=== PATIENT | male | born 1950 | race Two or more races ===

== ENCOUNTER 2017-12-28 15:17 | Emergency (ER) | payer OTHER ==
[2017-12-28] MEDS ORDERED: Sodium Chloride 0.9% 10 ML Syringe FLUSH PRN (16:04)
[2017-12-28] MEDS ORDERED: Sodium Chloride 0.9% 1,000 ML IV ONE (16:05)
[2017-12-28] MEDS ORDERED: Albuterol/Ipratropium 3.0-0.5 MG/3 ML Neb Soln NEB ONE (16:05)
[2017-12-28] MEDS ORDERED: Ondansetron 4 MG Tab.DIS PO ONE (16:07)
[2017-12-28] MEDS ORDERED: fentaNYL 100 MCG/2 ML SDV IVPUSH ONE (16:07)
[2017-12-28 16:55] LABS: CHLORIDE,CL 100 mmol/L (101-111); SODIUM,NA 135 mmol/L (135-145)
[2017-12-28] MEDS ORDERED: Iopamidol 612 MG/ML 75 ML Bottle IVPUSH ONE (16:57)
--- NOTE | 2017-12-28 17:50 | CT ---
Clinical history: 67-year-old newly jaundice male with distended abdomen who has had pain for the pas t 8 days (WBC 19,500). Scan technique: Volume acquisition of data abdomen and pelvis obtained without oral contrast but duri ng intravenous ministration 75 cc nonionic Isovue contrast via injector while patient was lying supin e on the Siemens multi slice scanner [place], [place]. All data archiv ed in the PACS system for storage, reformatting axial/sagittal/coronal planes and study. Interpretation: 1. Calcifications and extensive atheromatous plaque with thrombus and normal caliber abdominal aorta. No aneurysm or dissection. 2. *Gallbladder distended right upper quadrant with pericystic fluid suggesting inflammation. No gall stones or abnormal dilatation of the intra/extrahepatic biliary ducts but suggestion of biliary duct air. Cholangitis? Liver normal size/configuration. No hepatic mass. 3. Normal stomach, spleen, atrophic pancreas and adrenal glands. Normal reniform size axis and config uration. No renal cortical mass lesion, perinephric abscess, nephrolithiasis or signs of obstructive uropathy (no pyelocaliectasis or ureterectasis). 4. Calcifications midline prostate gland. Symmetrically distended nonopacified urinary bladder unrema rkable. 5. No pelvic or abdominal mass lesion, pelvic/mesenteric/retroperitoneal lymphadenopathy, inflammator y "dirty" peritoneal fat, signs of mechanical bowel obstruction, ascites or free intraperitoneal air. 6. Anterolisthesis L5 vertebral body and chronic severe degenerative disc disease L5-S1 level (associ ated destructive arthritis). 7. Normal cardiac silhouette. Lung bases clear. CONCLUSION: Diseased gallbladder and liver. Abnormal aorta and lower lumbar spine.
[2017-12-28] MEDS ORDERED: Piperacillin/Tazobactam 4.5 GM in Sodium Chloride 0.9% 50 ML IV ONE (17:51)
--- NOTE | 2017-12-28 18:18 | EDM.PDOC ---
Scribed by Whitney Day 12/28/17 [id number] for Misbah Aquino MD ED HPI GENERAL MEDICAL PROBLEM - General Chief Complaint: Abdominal Pain Stated Complaint: [id number] FARHATRIA 7 DAYS AB PAIN CANT WALK Time Seen by Provider: 12/28/17 15:34 Source of Information: Reports: Patient, RN, RN Notes Reviewed History Limitations: Reports: No Limitations - History of Present Illness INITIAL COMMENTS - FREE TEXT/NARRATIVE: Patient presents to ER by private vehicle with complaint of diarrhea and abdominal pain x7 days, but much worse in the past 24 hours. Patient states that in the past 24 hours his abdomen has become distended and hard. Reports having fairly frequent liquid stools in small amounts. Admits to nausea but denies any vomiting. Denies fever but admits to chills. Onset: Gradual Duration: Getting Worse Location: Reports: Abdomen Quality: Reports: Ache Severity: Severe Improves with: Reports: None Worsens with: Reports: None Associated Symptoms: Reports: No Other Symptoms Abdominal Pain Score (Numeric/FACES): 9 - Related Data Allergies Allergy/AdvReac Type Severity Reaction Status Date / Time No Known Allergies Allergy Verified 12/28/17 15:36 Home Meds: Home Meds Albuterol Sulfate [Albuterol Sulfate HFA] 2 puff INH Q4H PRN 01/05/15 [History] Aspirin [Halfprin] 1 tab PO DAILY 01/05/15 [History] Atenolol 50 mg PO DAILY 01/05/15 [History] Fluticasone/Salmeterol [Advair 500-50] 1 puff INH BID 01/05/15 [History] Hydrocodone/Acetaminophen [Hydrocodon-Acetaminophn 10-325] 1 tab PO TID PRN [History] Ipratropium [Atrovent] 1 vial INH Q6HR PRN 01/05/15 [History] Levothyroxine 1 tab PO DAILY 01/05/15 [History] Lisinopril 5 mg PO DAILY 01/05/15 [History] Montelukast Sodium 1 tab PO DAILY 01/05/15 [History] traMADol HCl [Tramadol HCl] 2 tab PO BID PRN 01/05/15 [History] Social & Family History - Family History Family Medical History: Noncontributory ED ROS GENERAL - Review of Systems Review Of Systems: ROS reveals no pertinent complaints other than HPI. ED EXAM, GI/ABD - Physical Exam Exam: See Below Exam Limited By: No Limitations General Appearance: Moderate Distress (due to pain), Other (chronically normal. ) Eyes: Bilateral: EOMI (mild sceral icterus) Nose: Normal Inspection Throat/Mouth: Normal Voice, No Airway Compromise, Other (dry oral membranes) Head: Atraumatic, Normocephalic Neck: Normal Inspection, Supple, Non-Tender, Full Range of Motion Respiratory/Chest: Chest Non-Tender, Decreased Breath Sounds, Crackles, Wheezing , Prolonged Expiration Cardiovascular: Regular Rate, Rhythm, No Edema, Tachycardia GI/Abdominal Exam: Distended, Rigid, Tender (diffuse generalized abdominal tenderness), Abnormal Bowel Sounds (hypoactive). No: Guarding, Rebound (Male) Exam: Deferred Rectal (Males) Exam: Deferred Back Exam: Normal Inspection Extremities: Normal Inspection Neurological: Alert, Oriented, No Motor/Sensory Deficits Psychiatric: Anxious Skin Exam: Warm, Dry, Intact, Normal Color, No Rash Course - Vital Signs Last Recorded V/S: Last Vital Signs Temp 38.2 C H 12/28/17 15:36 Pulse 101 H 12/28/17 16:38 Resp 17 12/28/17 15:36 BP 143/106 H 12/28/17 15:36 Pulse Ox 97 12/28/17 15:36 - Orders/Labs/Meds Orders: Active Orders 24 hr Category Date Time Status Peripheral IV Care [RC] . DIRECTED Care 12/28/17 16:04 Active RT Aerosol Therapy [RC] ASDIRECTED Care 12/28/17 16:07 Active CULTURE BLOOD [BC] Stat Lab 12/28/17 16:19 Results CULTURE BLOOD [BC] Stat Lab 12/28/17 16:28 Results UA W/MICROSCOPIC [URIN] Stat Lab 12/28/17 16:09 Ordered Piperacillin/Tazobactam [Zosyn] 4.5 gm Med 12/28/17 17:51 Active Sodium Chloride 0.9% [Normal Saline] 50 ml IV ONETIME Sodium Chloride 0.9% [Saline Flush] Med 12/28/17 16:04 Active 10 ml FLUSH ASDIRECTED PRN Blood Culture x2 Reflex Set [OM.PC] Stat Oth 12/28/17 16:04 Ordered Peripheral IV Insertion Adult [OM.PC] Stat Oth 12/28/17 16:03 Ordered Medication Orders Piperacillin Sod/Tazobactam (Sod 4.5 gm/ Sodium Chloride) 50 mls @ 100 mls/hr IV ONETIME ONE Stop: 12/28/17 18:20 Last Admin: 12/28/17 18:12 Dose: 100 mls/hr Sodium Chloride (Saline Flush) 10 ml FLUSH ASDIRECTED PRN PRN Reason: Keep Vein Open Last Admin: 12/28/17 16:24 Dose: 10 ml Labs: Laboratory Tests 12/28/17 12/28/17 12/28/17 Range/Units 16:09 16:19 16:19 WBC (5.0-10.0) 10^3/uL RBC (4.6-6.2) 10^6/uL Hgb (14.0-18.0) g/dL Hct (40.0-54.0) % MCV (80-100) fL MCH (27.0-34.0) pg MCHC (33.0-35.0) g/dL Plt Count (150-450) 10^3/uL Neut % (Auto) (42.2-75.2) % Lymph % (Auto) (20.5-50.1) % [place] % (Auto) (2-8) % Eos % (Auto) (1.0-3.0) % Baso % (Auto) (0.0-1.0) % Sodium (135-145) mmol/L Potassium (3.6-5.0) mmol/L Chloride (101-111) mmol/L Carbon Dioxide (21.0-31.0) mmol/L Anion Gap BUN (7-18) mg/dL Creatinine (0.6-1.3) mg/dL Est Cr Clr Drug Dosing mL/min Estimated GFR (MDRD) BUN/Creatinine Ratio Glucose (74-105) mg/dL Lactic Acid 1.8 (0.5-2.2) mmol/L Calcium (8.4-10.2) mg/dl Total Bilirubin (0.2-1.0) mg/dL AST (10-42) IU/L ALT (10-60) IU/L Alkaline Phosphatase (42-121) IU/L Ammonia 44 H (11-35) umol/L Total Protein (6.7-8.2) g/dl Albumin (3.2-5.5) g/dl Globulin Albumin/Globulin Ratio Amylase (28-100) U/L Lipase (22-51) U/L Urine Color [place] (YELLOW) Urine Appearance Turbid (CLEAR) Urine pH 5.5 (5.0-9.0) Ur Specific [place] 1.025 (1.005-1.030) Urine Protein 100 H (NEGATIVE) Urine Glucose (UA) Negative (NEGATIVE) Urine Ketones 15 H (NEGATIVE) Urine Occult Blood Moderate H (NEGATIVE) Urine Nitrite Negative (NEGATIVE) Urine Bilirubin Large H (NEGATIVE) Urine Urobilinogen 0.2 (0.2-1.0) mg/dL Ur Leukocyte Esterase Negative (NEGATIVE) Urine RBC 10-20 H /HPF Urine WBC 0-5 (0-5/HPF) /HPF Ur Epithelial Cells Rare /HPF Amorphous Sediment Many (0/HPF) /HPF Urine Bacteria Rare (0-FEW/HPF) /HPF Fine Granular Casts Few H (0/LPF) /LPF Urine Mucus Few H /LPF 12/28/17 12/28/17 Range/Units 16:28 16:28 WBC 19.4 H (5.0-10.0) 10^3/uL RBC 4.60 (4.6-6.2) 10^6/uL Hgb 13.8 L (14.0-18.0) g/dL Hct 41.2 (40.0-54.0) % MCV 89.6 (80-100) fL MCH 30.0 (27.0-34.0) pg MCHC 33.5 (33.0-35.0) g/dL Plt Count 198 (150-450) 10^3/uL Neut % (Auto) 91.1 H (42.2-75.2) % Lymph % (Auto) 4.2 L (20.5-50.1) % [place] % (Auto) 4.5 (2-8) % Eos % (Auto) 0.0 L (1.0-3.0) % Baso % (Auto) 0.2 (0.0-1.0) % Sodium 135 (135-145) mmol/L Potassium 3.4 L (3.6-5.0) mmol/L Chloride 100 L (101-111) mmol/L Carbon Dioxide 22.0 (21.0-31.0) mmol/L Anion Gap 16.4 BUN 16 (7-18) mg/dL Creatinine 0.8 (0.6-1.3) mg/dL Est Cr Clr Drug Dosing 82.63 mL/min Estimated GFR (MDRD) > 60 BUN/Creatinine Ratio 20.00 Glucose 161 H (74-105) mg/dL Lactic Acid (0.5-2.2) mmol/L Calcium 8.2 L (8.4-10.2) mg/dl Total Bilirubin 10.5 H (0.2-1.0) mg/dL AST 79 H (10-42) IU/L ALT 65 H (10-60) IU/L Alkaline Phosphatase 73 (42-121) IU/L Ammonia (11-35) umol/L Total Protein 7.5 (6.7-8.2) g/dl Albumin 3.7 (3.2-5.5) g/dl Globulin 3.8 Albumin/Globulin Ratio 0.97 Amylase 25 L (28-100) U/L Lipase 11 L (22-51) U/L Urine Color (YELLOW) Urine Appearance (CLEAR) Urine pH (5.0-9.0) Ur Specific [place] (1.005-1.030) Urine Protein (NEGATIVE) Urine Glucose (UA) (NEGATIVE) Urine Ketones (NEGATIVE) Urine Occult Blood (NEGATIVE) Urine Nitrite (NEGATIVE) Urine Bilirubin (NEGATIVE) Urine Urobilinogen (0.2-1.0) mg/dL Ur Leukocyte Esterase (NEGATIVE) Urine RBC /HPF Urine WBC (0-5/HPF) /HPF Ur Epithelial Cells /HPF Amorphous Sediment (0/HPF) /HPF Urine Bacteria (0-FEW/HPF) /HPF Fine Granular Casts (0/LPF) /LPF Urine Mucus /LPF Meds: Medications Generic Name Dose Route Start Last Admin Trade Name Freq PRN Reason Stop Dose Admin Piperacillin Sod/Tazobactam 50 mls @ 100 mls/hr 12/28/17 17:51 12/28/17 18:12 Sod 4.5 gm/ Sodium Chloride IV 12/28/17 18:20 100 mls/hr ONETIME ONE Administration Sodium Chloride 10 ml 12/28/17 16:04 12/28/17 16:24 Saline Flush FLUSH 10 ml ASDIRECTED PRN Administration Keep Vein Open Discontinued Medications Generic Name Dose Route Start Last Admin Trade Name Freq PRN Reason Stop Dose Admin Albuterol/Ipratropium 3 ml 12/28/17 16:05 12/28/17 16:20 Duoneb 3.0-0.5 Mg/3 Ml NEB 12/28/17 16:06 3 ml ONETIME ONE Administration Fentanyl 25 mcg 12/28/17 16:07 12/28/17 16:24 Sublimaze IVPUSH 12/28/17 16:08 25 mcg ONETIME ONE Administration Sodium Chloride 1,000 mls @ 999 mls/hr 12/28/17 16:05 12/28/17 16:25 Normal Saline IV 12/28/17 17:05 999 mls/hr .BOLUS ONE Administration Iopamidol 75 ml 12/28/17 16:57 12/28/17 17:32 Isovue-300 (61%) IVPUSH 12/28/17 16:58 75 ml ONETIME ONE Administration Ondansetron HCl 4 mg 12/28/17 16:07 12/28/17 16:24 Zofran Odt PO 12/28/17 16:08 4 mg ONETIME ONE Administration - Radiology Interpretation Free Text/Narrative:: CT abdomen and pelvis: Gallbladder distended right upper quadrant with pericystic fluid suggesting inflammation. No gallstones of biliary duct air. Cholangitis? Liver normal size/configuration. No hepatic mass. No pelvic or abdominal mass lesion, pelvic/mesenteric/retroperinteal lymphadenopathy, inflammatory "dirty" peritoneal fat,signs of mechanical bowel obstruction, ascites or free intraperitoneal air. Conclusion is disease gallbladder and liver. Abnormal aorta and lower lumbar spine. See rad report. Departure - Departure Time of Disposition: 18:01 Disposition: DC/Tfer to Acute Hospital 02 Condition: Critical Clinical Impression: Acute cholecystitis, Cholangitis - Discharge Information Referrals: PCP,None [Primary Care Provider] - Forms: ED Department Discharge, Interfacility Transfer EMTALA - My Orders Last 24 Hours: My Active Orders 12/28/17 16:03 Peripheral IV Insertion Adult [OM.PC] Stat 12/28/17 16:04 Peripheral IV Care [RC] . DIRECTED Sodium Chloride 0.9% [Saline Flush] 10 ml FLUSH ASDIRECTED PRN Blood Culture x2 Reflex Set [OM.PC] Stat 12/28/17 16:07 RT Aerosol Therapy [RC] ASDIRECTED 12/28/17 16:09 UA W/MICROSCOPIC [URIN] Stat 12/28/17 16:19 CULTURE BLOOD [BC] Stat 12/28/17 16:28 CULTURE BLOOD [BC] Stat 12/28/17 17:51 Piperacillin/Tazobactam [Zosyn] 4.5 gm Sodium Chloride 0.9% [Normal Saline] 50 ml IV ONETIME - Assessment/Plan Last 24 Hours: My Active Orders 12/28/17 16:03 Peripheral IV Insertion Adult [OM.PC] Stat 12/28/17 16:04 Peripheral IV Care [RC] . DIRECTED Sodium Chloride 0.9% [Saline Flush] 10 ml FLUSH ASDIRECTED PRN Blood Culture x2 Reflex Set [OM.PC] Stat 12/28/17 16:07 RT Aerosol Therapy [RC] ASDIRECTED 12/28/17 16:09 UA W/MICROSCOPIC [URIN] Stat 12/28/17 16:19 CULTURE BLOOD [BC] Stat 12/28/17 16:28 CULTURE BLOOD [BC] Stat 12/28/17 17:51 Piperacillin/Tazobactam [Zosyn] 4.5 gm Sodium Chloride 0.9% [Normal Saline] 50 ml IV ONETIME I have read and agree with the documentation that has been completed regarding this visit. By signing this record, I attest that the documentation was completed in my physical presence and is an accurate record of the encounter.
[2017-12-28 18:20] VITALS: BP 121/61
== END 2017-12-28 18:40 ==
LOC: DL.ED 15:17
DX: K81.0 Acute cholecystitis (principal); K83.0 Cholangitis; Z79.82 Long term (current) use of aspirin
CPT/HCPCS: 36415; 74177; 80053; 81001; 82140; 82150; 83605; 83690; 85025; 87040; 96361; 96365; 96375; 99285; A9270; J2543; J3010; J7030; J7050; Q9967

== ENCOUNTER 2019-11-28 01:47 | Emergency (ER) | payer MEDICARE, OTHER ==
[2019-11-28 02:01] VITALS: BP 168/70; PULSE 86
[2019-11-28 02:49] LABS: ANION GAP 11.6 mEq/L (7-13); CHLORIDE,CL 98 mmol/L (98-107); SODIUM,NA 139 mmol/L (136-145)
--- NOTE | 2019-11-28 02:50 | EDM.PDOC ---
ED HPI GENERAL MEDICAL PROBLEM - General Chief Complaint: Lower Extremity Injury/Pain Stated Complaint: BLOOD CLOT IN LEG Time Seen by Provider: 11/28/19 01:58 Source of Information: Reports: Patient History Limitations: Reports: No Limitations - History of Present Illness INITIAL COMMENTS - FREE TEXT/NARRATIVE: ED per w/c with c/o possible blood clot to left leg, Noted ankle and foot swollen on left. Recnt hospitalization for one week for pneumonia and home since Monday. Denies prior hx. Denies CHF hx. No chest pain. No increase SOB. Hx COPD and is oxygen dependent. No fever or chills. Treatments [employer] WORKER: Reports: Other Medication(s) Left Foot Pain Score (Numeric/FACES): 5 - Related Data Allergies Allergy/AdvReac Type Severity Reaction Status Date / Time No Known Allergies Allergy Verified 11/20/19 13:25 Home Meds: Home Meds Albuterol Sulfate [Albuterol Sulfate HFA] 2 puff INH Q4H PRN 01/05/15 [History] Aspirin [Halfprin] 1 tab PO DAILY 01/05/15 [History] Hydrocodone/Acetaminophen [Hydrocodon-Acetaminophn 10-325] 1 tab PO TID PRN [History] Ipratropium [Atrovent] 1 vial INH Q6HR PRN 01/05/15 [History] Levothyroxine 150 tab PO DAILY 01/05/15 [History] Lisinopril 20 mg PO DAILY 01/05/15 [History] Montelukast Sodium 1 tab PO DAILY 01/05/15 [History] Acetaminophen [Tylenol Extra Strength] 500 mg PO Q6H PRN 11/28/19 [History] Ascorbic Acid 500 mg PO BID 11/28/19 [History] Carboxymethylcellulos/Glycerin [Refresh Optive Gel Eye Drops] 1 drop EYEBOTH BEDTIME 11/28/19 [History] Cholecalciferol (Vitamin D3) [Vitamin D3] 50 mcg PO DAILY 11/28/19 [History] Fluticasone/Salmeterol [Advair 500-50] 1 inh INH BID 11/28/19 [History] Metoprolol Succinate [Toprol XL 100mg] 100 mg PO DAILY 11/28/19 [History] Naloxone HCl 1 inh INH ASDIRECTED 11/28/19 [History] [place]-3/DHA/Epa/Fish Oil [[place] 3 500 Softgel] 1,000 mg PO DAILY 11/28/19 [ History] Tiotropium [Spiriva HandiHaler] 1 inh INH BEDTIME 11/28/19 [History] Vitamin E 250 units PO DAILY 11/28/19 [History] amLODIPine [Norvasc] 10 mg PO DAILY 11/28/19 [History] predniSONE 40 mg PO BID 11/28/19 [History] Past Medical History HEENT History: Reports: Hard of Hearing Other HEENT History: wears bilateral HAs. Cardiovascular History: Reports: Hypertension Respiratory History: Reports: COPD, SOB Musculoskeletal History: Reports: Arthritis, Back Pain, Chronic, Other (See Below) Other Musculoskeletal History: chronic left shoulder pain Psychiatric History: Reports: Anxiety, PTSD Endocrine/Metabolic History: Reports: Hypothyroidism - Infectious Disease History Infectious Disease History: Reports: Chicken Pox, Measles, Mumps, Rubella - Past Surgical History HEENT Surgical History: Reports: Other (See Below) Other HEENT Surgeries/Procedures: eyelid surgery GI Surgical History: Reports: Appendectomy Musculoskeletal Surgical History: Reports: Knee Replacement Other Musculoskeletal Surgeries/Procedures:: Partial L) knee replacement. Social & Family History - Family History Family Medical History: Noncontributory - Tobacco Use Smoking Status *Q: Unknown Ever Smoked Second Hand Smoke Exposure: No - Caffeine Use Caffeine Use: Reports: Coffee, Tea - Recreational Drug Use Recreational Drug Use: No Review of Systems - Review of Systems Review Of Systems: Comprehensive ROS is negative, except as noted in HPI. ED EXAM, GENERAL - Physical Exam Exam: See Below Exam Limited By: No Limitations General Appearance: Alert, Anxious, Mild Distress, Obese Eye Exam: Bilateral Eye: Foreign Body Ears: Normal External Exam, Hearing Loss Nose: Normal Inspection Throat/Mouth: Normal Inspection Head: Atraumatic, Normocephalic Neck: Normal Inspection Respiratory/Chest: No Respiratory Distress, Decreased Breath Sounds Cardiovascular: Normal Peripheral Pulses, Regular Rate, Rhythm GI/Abdominal: Normal Bowel Sounds, Soft Extremities: Normal Capillary Refill, Pedal Edema (left greater than right), Other (pedal pulses bilateral equal strong) Neurological: Alert, Oriented, CN II-XII Intact, Normal Cognition Psychiatric: Anxious Skin Exam: Warm, Dry, Intact, Normal Color Course - Vital Signs Last Recorded V/S: Last Vital Signs Temp 97.4 F 11/28/19 01:59 Pulse 86 11/28/19 01:59 Resp 24 H 11/28/19 01:59 BP 168/70 H 11/28/19 01:59 Pulse Ox 95 11/28/19 01:59 - Orders/Labs/Meds Orders: Active Orders 24 hr Category Date Time Status Venous Doppler Lwr Ext Lt [US] Urgent Exams 11/28/19 04:49 Taken CULTURE BLOOD [BC] Stat Lab 11/28/19 02:18 Received Venous Duplex Leg Lt [CV] Routine Ther 11/28/19 02:47 Ordered Labs: Laboratory Tests 11/28/19 11/28/19 11/28/19 Range/Units 02:18 02:18 02:18 WBC 16.1 H (5.0-10.0) 10^3/uL RBC 4.15 L (4.6-6.2) 10^6/uL Hgb 12.3 L D (14.0-18.0) g/dL Hct 37.5 L (40.0-54.0) % MCV 90.4 (80-100) fL MCH 29.6 (27.0-34.0) pg MCHC 32.8 L (33.0-35.0) g/dL Plt Count 224 (150-450) 10^3/uL Neut % (Auto) 73.9 (42.2-75.2) % Lymph % (Auto) 17.8 L (20.5-50.1) % [place] % (Auto) 7.9 (2-8) % Eos % (Auto) 0.3 L (1.0-3.0) % Baso % (Auto) 0.1 (0.0-1.0) % Add Manual Diff Yes Neutrophils % (Manual) 70 (42-75) % Band Neutrophils % 5 % Lymphocytes % (Manual) 20 (20-50) % Monocytes % (Manual) 5 (2-8) % PT (9.0-12.0) SEC INR (0.9-1.2) D-Dimer, Quantitative 1060 H (0-400) ng/mL Sodium 139 (136-145) mmol/L Potassium 3.6 (3.5-5.1) mmol/L Chloride 98 (98-107) mmol/L Carbon Dioxide 33 H (21-32) mmol/L Anion Gap 11.6 (7-13) mEq/L BUN 22 H (7-18) mg/dL Creatinine 1.10 (0.70-1.30) mg/dL Est Cr Clr Drug Dosing 62.49 mL/min Estimated GFR (MDRD) > 60 BUN/Creatinine Ratio 20.0 (No establ ref range) Glucose 220 H (74-99) mg/dL Lactic Acid (0.4-2.0) mmol/L Calcium 9.0 (8.5-10.1) mg/dL Total Bilirubin 0.3 (0.2-1.0) mg/dL AST 14 L (15-37) U/L ALT 30 (16-63) U/L Alkaline Phosphatase 42 L (46-116) U/L B-Natriuretic Peptide 261 H (0-100) pg/ml Total Protein 7.0 (6.4-8.2) g/dL Albumin 2.8 L (3.4-5.0) g/dL Globulin 4.2 Albumin/Globulin Ratio 0.67 11/28/19 11/28/19 Range/Units 02:18 02:18 WBC (5.0-10.0) 10^3/uL RBC (4.6-6.2) 10^6/uL Hgb (14.0-18.0) g/dL Hct (40.0-54.0) % MCV (80-100) fL MCH (27.0-34.0) pg MCHC (33.0-35.0) g/dL Plt Count (150-450) 10^3/uL Neut % (Auto) (42.2-75.2) % Lymph % (Auto) (20.5-50.1) % [place] % (Auto) (2-8) % Eos % (Auto) (1.0-3.0) % Baso % (Auto) (0.0-1.0) % Add Manual Diff Neutrophils % (Manual) (42-75) % Band Neutrophils % % Lymphocytes % (Manual) (20-50) % Monocytes % (Manual) (2-8) % PT 9.9 (9.0-12.0) SEC INR 1.0 (0.9-1.2) D-Dimer, Quantitative (0-400) ng/mL Sodium (136-145) mmol/L Potassium (3.5-5.1) mmol/L Chloride (98-107) mmol/L Carbon Dioxide (21-32) mmol/L Anion Gap (7-13) mEq/L BUN (7-18) mg/dL Creatinine (0.70-1.30) mg/dL Est Cr Clr Drug Dosing mL/min Estimated GFR (MDRD) BUN/Creatinine Ratio (No establ ref range) Glucose (74-99) mg/dL Lactic Acid 1.6 (0.4-2.0) mmol/L Calcium (8.5-10.1) mg/dL Total Bilirubin (0.2-1.0) mg/dL AST (15-37) U/L ALT (16-63) U/L Alkaline Phosphatase (46-116) U/L B-Natriuretic Peptide (0-100) pg/ml Total Protein (6.4-8.2) g/dL Albumin (3.4-5.0) g/dL Globulin Albumin/Globulin Ratio - Radiology Interpretation Free Text/Narrative:: [facility] Final Radiology Report Call: [phone] assistance Online chat: [email or web address] Name: HAMILTON PERLA Age: 69Years M Date: 11/28/2019 SSN: -- : 1950 Study: US DUPLEX EXTREM VEINS UNILAT LTD LEFT Requesting Physician: JULIANA RODRÍGUEZ Images: 21 Addl Studies: Provided Clinical History: Contrast: Without Contrast Medium: Contrast Amount: Contrast Method: CONFIDENTIALITY STATEMENT This report is intended only for use by the referring physician, and only in accordance with law. If you received this in error, call [phone]. Page 1 of 1 PROCEDURE INFORMATION: Exam: US Duplex Left Lower Extremity Veins, Limited Exam date and time: 11/28/2019 4:03 AM Age: 69 years old Clinical indication: Swelling (edema) of limb; Lower extremity, left TECHNIQUE: Imaging protocol: Real-time Duplex ultrasound of the Left Lower Extremity with 2 -D hogan scale, color Doppler flow and spectral waveform analysis with image documentation. Limited exam focused on the left lower extremity veins. COMPARISON: No relevant prior studies available. FINDINGS: Left deep veins: Unremarkable. The common femoral, femoral, proximal profunda femoral and popliteal veins are patent without thrombus. Normal Doppler waveforms. Normal compressibility and/or augmentation response. Left superficial veins: Unremarkable. Saphenofemoral junction is patent without thrombus. Soft tissues: Unremarkable. IMPRESSION: No acute findings. No evidence of deep vein thrombosis. Thank you for allowing us to participate in the care of your patient. Dictated and Authenticated by: Binh Barajas MD 11/28/2019 5:02 AM Central Time ( Departure - Departure Time of Disposition: 05:05 Disposition: Home, Self-Care 01 Condition: Good Clinical Impression: Peripheral edema, History of recent pneumonia, Oxygen dependent COPD (chronic obstructive pulmonary disease) Qualifiers: COPD type: unspecified COPD Qualified Code(s): J44.9 - Chronic obstructive pulmonary disease, unspecified - Discharge Information *PRESCRIPTION DRUG MONITORING PROGRAM REVIEWED*: No *COPY OF PRESCRIPTION DRUG MONITORING REPORT IN PATIENT KACIE: No Instructions: COPD and Physical Activity Forms: ED Department Discharge Additional Instructions: Take home medications as prescribed Follow up with clinic appointments as scheduled light activity elevate extremities support hose if continued edema Sepsis Event Note - Evaluation Sepsis Screening Result: No Definite Risk - Focused Exam Vital Signs: Vital Signs Temp Pulse Resp BP Pulse Ox 11/28/19 01:59 97.4 F 86 24 H 168/70 H 95 Date Exam was Performed: 11/28/19 Time Exam was Performed: :20 - My Orders Last 24 Hours: My Active Orders 11/28/19 02:18 CULTURE BLOOD [BC] Stat 11/28/19 02:47 Venous Duplex Leg Lt [CV] Routine 11/28/19 04:49 Venous Doppler Lwr Ext Lt [US] Urgent - Assessment/Plan Last 24 Hours: My Active Orders 11/28/19 02:18 CULTURE BLOOD [BC] Stat 11/28/19 02:47 Venous Duplex Leg Lt [CV] Routine 11/28/19 04:49 Venous Doppler Lwr Ext Lt [US] Urgent
== END 2019-11-28 05:20 | disposition home or self-care (01) ==
LOC: DL.ED 01:47
DX: R60.0 Localized edema (principal); J44.9 Chronic obstructive pulmonary disease, unspecified; J18.9 Pneumonia, unspecified organism; Z99.81 Dependence on supplemental oxygen; I10 Essential (primary) hypertension; M19.90 Unspecified osteoarthritis, unspecified site; Z79.82 Long term (current) use of aspirin; E03.9 Hypothyroidism, unspecified; Z79.899 Other long term (current) drug therapy
CPT/HCPCS: 36415; 80053; 83605; 83880; 85025; 85379; 85610; 87040; 93971; 99283; 99284-25